=== PATIENT | male | born 1955 | race Caucasian/White ===

== ENCOUNTER 2024-09-24 10:03 | Outpatient (CLI) | payer MEDICARE, MEDICAID | END 2024-09-24 23:59 | disposition home or self-care (01) | LOC: MRI02 10:03 | PROVIDERS: ATTEND Nurse Practitioner Family | DX: S00.93XD Contusion of unspecified part of head, subsequent encounter (principal); G31.9 Degenerative disease of nervous system, unspecified; R90.82 White matter disease, unspecified; I67.82 Cerebral ischemia; X58.XXXA Exposure to other specified factors, initial encounter; Y93.89 Activity, other specified; Y92.89 Other specified places as the place of occurrence of the external cause; Y99.8 Other external cause status | CPT/HCPCS: 70551 ==

== ENCOUNTER 2025-05-07 09:17 | Outpatient (CLI) | payer MEDICARE, MEDICAID ==
--- NOTE | 2025-05-07 12:58 | RADIOLOGY REPORT ---
CLINICAL HISTORY: PULMONARY NODULES TECHNIQUE: CT of the chest was performed without intravenous contrast. This exam was performed according to our departmental dose optimization program. Up-to-date CT equipment and radiation dose reduction techniques are utilized as appropriate. CTDI: 17.6 mGy ; DLP: 674.54 mGy COMPARISON: None FINDINGS: Lower Neck: There is a posterior left thyroid nodule measuring 1.5 cm on series 2, image 9. Axilla, Mediastinum and [place]: Unremarkable. Heart and Great Vessels: Normal-sized heart without pericardial effusion. Ectasia of the ascending thoracic aorta measuring 4.1 cm on series 601, image 33. There is moderate calcified plaque within the thoracic aorta. Moderate to marked 3-vessel calcified coronary artery disease and mild aortic valve c alcification. The central pulmonary arteries are normal caliber. Airway, Lungs and Pleura: Trachea and central airways are patent. No airspace consolidation, pleural effusion, or pneumothorax. There are scattered calcified granulomas. Sub 5 mm right lower lobe pulmonary nodule on series 3, image 34. There is a 7.6 mm left lower lobe pulmonary nodule on series 3, image 40. Linear bibasilar scarring or atelectasis. Upper Abdomen: Nonspecific bilateral perinephric stranding. Tiny nonobstructing bilateral renal calculi. Prior cholecystectomy. There is mild colonic diverticulosis. There is a diverticulum off the 2nd portion of the duodenum. No acute abnormality in the abdomen. Chest Wall and Osseous Structures: Mild degenerative change of the bilateral acromioclavicular joints. Multilevel thoracic spondylosis. There is mild height loss of the T7 and T8 vertebral bodies with diffuse sclerosis of the vertebral bodies as well as marked narrowing of the T7-T8 disc space. There is marked narrowing / partial fusion of the T6-T7 intervertebral disc space. IMPRESSION: 1. A few bilateral lower lobe pulmonary nodules measuring up to 7.6 mm in the left lower lobe. Lung rads 3, follow-up low-dose CT chest recommended in 6 months for re-evaluation if there are risk factors for pulmonary malignancy. 2. Ectasia of the ascending thoracic aorta measuring 4.1 cm. 3. Moderate to marked 3-vessel calcified coronary artery disease and mild aortic valve calcification. 4. Tiny nonobstructing bilateral renal calculi. 5. Colonic and duodenal diverticulosis. 6. Diffuse sclerosis and mild height loss of the T7 and T8 vertebral bodies which could reflect healing response. 7. Severe height loss of the T6-T7 and T7-T8 disc spaces likely degenerative. Discitis / osteomyelitis particularly at T7-T8 is also consideration although there is no paravertebral fluid or soft tissue to suggest phlegmon or inflammation. Correlate with clinical symptoms Radiation optimization: All CT scans at this facility use at least one of these dose optimization techniques: automated exposure control mA and/or kV adjustment per patient size (includes targeted exams where dose is matched to clinical indication) or iterative reconstruction.
== END 2025-05-07 23:59 | disposition home or self-care (01) ==
LOC: RAD 09:17
PROVIDERS: ATTEND Nurse Practitioner Family
DX: R91.8 Other nonspecific abnormal finding of lung field (principal); K57.30 Diverticulosis of large intestine without perforation or abscess without bleeding; N20.0 Calculus of kidney; Z90.49 Acquired absence of other specified parts of digestive tract; I25.10 Atherosclerotic heart disease of native coronary artery without angina pectoris; J92.9 Pleural plaque without asbestos; M19.011 Primary osteoarthritis, right shoulder; M47.814 Spondylosis without myelopathy or radiculopathy, thoracic region; M86.8X6 Other osteomyelitis, lower leg
CPT/HCPCS: 71250